=== PATIENT | female | born 1975 | race Caucasian/White ===

== ENCOUNTER → 2023-09-06 07:51 | Outpatient (REF) | payer BC, SELFPAY | LOC: EMG 07:51 | PROVIDERS: ATTENDING PHYSICIAN Orthopaedic Surgery Hand Surgery; FAMILY PHYSICIAN Internal Medicine | DX: G56.02 Carpal tunnel syndrome, left upper limb (principal); R20.0 Anesthesia of skin | CPT/HCPCS: 95886; 95909 ==

== ENCOUNTER 2023-09-11 12:40 | Emergency (ER) | payer BC, SELFPAY ==
[2023-09-11 12:43] VITALS: BP 159/102
--- NOTE | 2023-09-11 14:06 | ED.GENMED ---
History of Present Illness
General
Chief Complaint: Musculo-Skeletal Complaint
Source: patient
Exam Limitations: none
Time Seen by Provider: 09/11/23 13:40
Nursing documentation reviewed up to this point in time: agreed with
Travel History
Have you had any contact with someone who has COVID-19?: No
Do you have any symptoms of coronavirus? Fever > 100 degrees, chills, cough, shortness of breath, sore throat, loss of taste or smell, muscle aches, or headache?: No
History of Present Illness
History of Present Illness:
Patient is a 47-year-old female who presents to the ER for evaluation. Patient reports fracture started with numbness and tingling to her left hand more in the thumb and index finger region. She saw orthopedics Dr. Pelaez of orthopedics and had a
normal EMG. She then however started with pain 1 week ago. She reports pain is in her left back left trapezius region which radiates down her left arm. She reports this is constant she is unable to sleep with that. She is not short of breath
with this pain. She does however feel some slight discomfort left chest. It is not made worse with movement. She denies any weakness in her left hand but does complain of continued numbness. She has taken Aleve/Tylenol without relief.
She has no cardiac history. She is a smoker and does have high cholesterol.
Past History
Past History
ED Past Medical History: None
ED Past Surgical History: None
Social History
Tobacco: Non-smoker
Alcohol: None
Review of Systems
Review of Systems
Allergies reviewed?: Yes
All Other Systems: ROS reviewed and negative except as documented in HPI and ROS
Constitutional: Reports no symptoms; Denies fever, fatigue or chills
Respiratory: Denies trouble breathing
Cardiac: Reports chest pain
ABD/GI: Reports no symptoms
: Reports no symptoms
Musculoskeletal: Reports other (pain left back which radiates to left arm )
Skin: Reports no symptoms
Neurological: Reports numbness (numbness to left hand region along thumb/index finger region )
Psychiatric: Reports no symptoms
Phy Exam
General Physical Exam
General Presentation: no apparent distress
General age: appears stated age
General Skin: warm and dry
General Habitus: normal
General Mental: alert
General Hydration: appears well hydrated
Cardiovascular Exam
Cardiovascular Exam: regular rate/rhythm, no murmur and normal peripheral pulses
Pulmonary Exam
Pulmonary Exam: lungs clear and no respiratory distress
Neurological Exam
Neurological Exam: alert, oriented x3 and other (Patient has normal sensation to bilateral upper extremities strong strike planning applications strength bilaterally, normal flexion extension of fingers )
Musculoskeletal Exam
Musculoskeletal Exam: full ROM
Skin Exam
Skin Exam: normal color and warm/dry
Psychiatric Exam
Psychiatric Exam: normal mood/affect
Course
Orders/Labs/Results
Orders:
Orders
09/11/23 12:45
Electrocardiogram (*1) Urgent
Reason for Study: Fatigue / Weakness
EKG- Treatment ONCE
09/11/23 14:00
Complete Blood Count/With Diff Urgent
Comprehensive Metabolic Panel Urgent
Troponin I Urgent
09/11/23 14:03
Dexamethasone Sod Phosphate [Decadron] 10 mg IV NOW STA
09/11/23 14:04
Ketorolac [Toradol] 15 mg IV NOW STA
09/11/23 15:03
diazePAM [Valium Injection] 2 mg IV NOW STA
Abnormal Lab Results
09/11/23
14:00
MCHC 32.9 L g/dL
(33.0-37.0)
MPV 10.6 H fL
(7.4-10.4)
Creatinine 0.5 L mg/dL
(0.6-1.0)
Glucose 130 H mg/dl
(70-99)
09/11/23 14:00
09/11/23 14:00
Vital Signs
Initial and Last Documented VS:
Initial Vital Signs
Temp Pulse Resp BP Pulse Ox
98.3 F 88 18 159/102 98
09/11/23 12:43 09/11/23 12:43 09/11/23 12:43 09/11/23 12:43 09/11/23 12:43
Last Documented Vital Signs
Temp Pulse Resp BP Pulse Ox
98.3 F 73 18 155/89 98
09/11/23 12:43 09/11/23 14:43 09/11/23 14:43 09/11/23 14:43 09/11/23 14:43
Honey Blender consulted with Physician
Honey Blender consulted with physician?: Yes
Name of Physician Consulted: Dorian
MDM/Problems Addressed
Differential Diagnosis Includes:
not limited to: Radicular pain
MDM/Problems Addressed:
Symptoms are consistent with radicular pain. Patient on exam has no obvious weakness but does complain of pain left side of neck left trapezius left chest or left arm. She has documented started with paresthesias of her left hand thumb and index
finger since August 07 however this pain developed 1 week ago. She has been seen by orthopedics who did EMG to evaluated the numbness in her hand which she she said was negative. I was not able to find the study and records.\\
She has no cardiac history. With pain rating down left arm card troponin was done and unremarkable, EKG unremarkable. Patient was given Toradol and Decadron with some relief will give 1 dose of Valium here. Case discussed with radiology. CAT
scan did not show obvious disc herniation is on the differential. Patient does need MRI. Will DC with outpatient Ortho. Did review patient that she likely will need further imaging. case d/c w/ ED physician will d/c w/ steroids /gapapentin .
*Pulse Oximetry
Patient hypoxic: no
*Critical Care Note
Total Time (30-74mins, 75-104mins- exclusive of procedures): Not Applicable
ED Attending Note
-
Portions of this chart may have been created with voice recognition software.� Occasional wrong word or��sound alike� substitutions may have occurred due to the inherent limitations of voice recognition software.
Discharge Plan
Departure
Patient Disposition: Home (Routine Discharge)
Date of Disposition: 09/11/23
Time of Disposition: 15:35
Patient with high blood pressure during this ER visit?: Yes
Condition: Fair
Covid-19: Not Applicable
Discharge Problem:
Cervical radiculopathy
Instructions: Radiculopathy (DC), BLOOD PRESSURE
Prescriptions:
New
gabapentin 300 mg capsule
300 mg PO TID PRN (Reason: nerve pain) Qty: 20 0RF
prednisone 50 mg tablet
50 mg PO DAILY Qty: 5 0RF
No Action
amitriptyline 25 mg tablet
25 mg PO HS
calcium carbonate [Tums] 200 mg calcium (500 mg) Tablet,Chewable
200 mg PO TIDPRN PRN (Reason: GERD)
diclofenac sodium 1 % Gel
1 ea TOPICAL BIDPRN PRN (Reason: BACK OF NECK AREA)
oxycodone 5 mg tablet
5 - 10 mg PO Q4HPRN PRN (Reason: moderate to severe pain) Qty: 20 0RF
cyanocobalamin (vitamin B-12) 1,000 mcg Tablet
1,000 mcg PO DAILY Qty: 30 0RF
ibuprofen [Motrin IB] 200 mg capsule
400 mg PO Q6H PRN (Reason: moderate pain) Qty: 14 0RF
Rx Instructions:
take with food Only
omeprazole 20 mg Tablet,Delayed Release (Dr/Ec)
20 mg PO DAILY Qty: 0 0RF
thiamine HCl (vitamin B1) 100 mg tablet
100 mg PO DAILY Qty: 10 0RF
Referrals:
Jose Juan Pelaez MD [Active] -
Jesse Schwartz MD [Family Provider] -
Activity Restrictions/Additional Instructions:
discussed please follow up with orthopedics for further evaluation. It is likely that you will also need additional imaging. Please call tomorrow to make an appointment.
As discussed please take steroids and gabapentin as directed. These medications were sent to pharmacy.
Start steroids tomorrow as you were given the first dose here in the ER. Also gabapentin may cause drowsiness. Please try the first dose before bed or in the evening to see how this medication affects you
Return if any worsening of symptoms creased pain/weakness to left arm/hand /fevers or any further concerns
Interventions
Interventions:
*Risk Screen - Suicide Last Done: 09/11/23 12:43
*General Assessment Last Done: 09/11/23 12:43
*Neglect/Abuse Screening Last Done: 09/11/23 12:43
ED- Fall Risk Assessment Last Done: 09/11/23 14:03
*ED COVID-19 Vaccine History Last Done: 09/11/23 12:43
ED-Musculoskeletal Assessment Last Done: 09/11/23 14:02
[2023-09-11 14:13] LABS: % Basophils 0.7 % (0-2); % Eosinophils 1.1 % (0-6); % Immature Granulocytes 0.2 % (0-0.5); % Lymphocytes 27.7 % (20.5-51.1); % Monocytes 9.2 % (1.7-9.3); % Neutrophils 61.1 % (42.2-75.2); Absolute Eosinophils 0.1 10^3/uL (0-0.7); Absolute Lymphocytes 1.5 10^3/uL (1.2-3.4); Absolute Monocytes 0.5 10^3/uL (0.1-0.6); Absolute Neutrophils 3.3 10^3/uL (1.4-6.5); Hematocrit 42.3 % (37.0-47.0); Hemoglobin 13.9 g/dL (12.0-16.0); Mean Corp Hgb Conc. 32.9 g/dL (33.0-37.0); Mean Corpuscular Hgb 27.6 pg (27.0-31.0); Mean Corpuscular Volume 83.9 fL (81.0-99.0); Mean Platelet Volume 10.6 fL (7.4-10.4); Nucleated Red Blood Cells % 0 %; Platelet Count 318 10^3/uL (130-400); Red Blood Cell Count 5.04 10^6/uL (4.20-5.40); Red Cell Dist. Width 13.7 % (11.5-14.5); White Blood Cell Count 5.5 10^3/uL (4.8-10.8)
[2023-09-11] MEDS: DECADRON 10 MG IV (14:18)
[2023-09-11] MEDS: TORADOL 15 MG IV (14:18)
[2023-09-11 14:22] LABS: ALT (SGPT) 18 U/L (0-35); AST (SGOT) 22 U/L (14-36); Albumin 4.3 g/dl (3.5-5.0); Alkaline Phosphatase 48 U/L (38-126); Blood Urea Nitrogen 11 mg/dl (7-17); Calcium 9.6 mg/dl (8.4-10.2); Carbon Dioxide 28 mmol/L (22-30); Chloride 101 mmol/L (98-107); Glucose 130 mg/dl (70-99); Potassium 4.3 mmol/L (3.5-5.1); Sodium 138 mmol/L (135-145); Total Bilirubin 0.8 mg/dl (0.2-1.3); Total Protein 7.4 g/dl (6.3-8.2); eGFR > 60.00
[2023-09-11 14:36] LABS: Troponin I < 0.012 ng/ml
[2023-09-11 14:43] VITALS: BP 155/89
[2023-09-11] MEDS: VALIUM INJECTION 2 MG IV (15:08)
== END 2023-09-11 15:48 | disposition home or self-care (01) ==
LOC: EMR 12:40
PROVIDERS: Emergency Medicine; EMERGENCY PHYSICIAN Emergency Medicine; FAMILY PHYSICIAN Internal Medicine
DX: M54.12 Radiculopathy, cervical region (principal); R03.0 Elevated blood-pressure reading, without diagnosis of hypertension
CPT/HCPCS: 99284; 96374; 96375 ×2; 80053; 84484; 85025; 93005

== ENCOUNTER → 2023-09-21 10:58 | Outpatient (REF) | payer BC, SELFPAY | LOC: HWRAD 10:58 | PROVIDERS: ATTENDING PHYSICIAN Internal Medicine | DX: M54.2 Cervicalgia (principal); E04.1 Nontoxic single thyroid nodule | CPT/HCPCS: 76536 ==

== ENCOUNTER → 2023-10-17 07:58 | Outpatient (REF) | payer BC, SELFPAY ==
[2023-10-17 08:26] LABS: % Basophils 0.3 % (0-2); % Eosinophils 1.6 % (0-6); % Immature Granulocytes 0.4 % (0-0.5); % Lymphocytes 21.2 % (20.5-51.1); % Monocytes 7.3 % (1.7-9.3); % Neutrophils 69.2 % (42.2-75.2); Absolute Eosinophils 0.1 10^3/uL (0-0.7); Absolute Lymphocytes 1.9 10^3/uL (1.2-3.4); Absolute Monocytes 0.7 10^3/uL (0.1-0.6); Absolute Neutrophils 6.2 10^3/uL (1.4-6.5); Hematocrit 40.8 % (37.0-47.0); Hemoglobin 13.2 g/dL (12.0-16.0); Mean Corp Hgb Conc. 32.4 g/dL (33.0-37.0); Mean Corpuscular Hgb 26.9 pg (27.0-31.0); Mean Corpuscular Volume 83.1 fL (81.0-99.0); Mean Platelet Volume 10.5 fL (7.4-10.4); Nucleated Red Blood Cells % 0 %; Platelet Count 295 10^3/uL (130-400); Red Blood Cell Count 4.91 10^6/uL (4.20-5.40)
[2023-10-17 09:20] LABS: ALT (SGPT) 25 U/L (0-35); AST (SGOT) 23 U/L (14-36); Albumin 4.2 g/dl (3.5-5.0); Alkaline Phosphatase 66 U/L (38-126); Blood Urea Nitrogen 5 mg/dl (7-17); Calcium 9.3 mg/dl (8.4-10.2); Carbon Dioxide 26 mmol/L (22-30); Chloride 105 mmol/L (98-107); Glucose 99 mg/dl (70-99); HDL Cholesterol 58 mg/dl; LDL Cholesterol, Calculated 120 mg/dl; Potassium 4.1 mmol/L (3.5-5.1); Sodium 137 mmol/L (135-145); Total Bilirubin 0.6 mg/dl (0.2-1.3); Total Cholesterol 201 mg/dl (50-199); Total Protein 7.1 g/dl (6.3-8.2); Triglyceride 115 mg/dl (10-149); Very Low Density Lipoprotein 23 mg/dl (0-30); eGFR > 60.00
[2023-10-17 09:30] LABS: Free T4 0.99 ng/dl (0.78-2.19)
== END ==
LOC: REG 07:58
PROVIDERS: ATTENDING PHYSICIAN Internal Medicine
DX: E78.5 Hyperlipidemia, unspecified (principal); M54.2 Cervicalgia
CPT/HCPCS: 36415; 80053; 80061; 84439; 84443; 85025

== ENCOUNTER → 2023-11-15 09:00 | Outpatient (REF) | payer BC, SELFPAY ==
[2023-11-15 09:12] VITALS: BP 156/92; BP_SYST 89
== END ==
LOC: RADI 09:00
PROVIDERS: ATTENDING PHYSICIAN Internal Medicine
DX: E04.1 Nontoxic single thyroid nodule (principal)
CPT/HCPCS: 88173; 10005

== ENCOUNTER → 2024-02-13 16:30 | Outpatient (REF) | payer BC, SELFPAY | LOC: HWWDC 16:30 | PROVIDERS: ATTENDING PHYSICIAN Obstetrics & Gynecology Gynecology; FAMILY PHYSICIAN Internal Medicine | DX: Z12.31 Encounter for screening mammogram for malignant neoplasm of breast (principal) | CPT/HCPCS: 77063; 77067 ==

== ENCOUNTER → 2024-03-14 13:11 | Outpatient (REF) | payer BC, SELFPAY ==
[2024-03-14 14:15] LABS: % Basophils 0.6 % (0-2); % Eosinophils 0.6 % (0-6); % Immature Granulocytes 0.5 % (0-0.5); % Lymphocytes 25.5 % (20.5-51.1); % Monocytes 6.8 % (1.7-9.3); Absolute Lymphocytes 1.6 10^3/uL (1.2-3.4); Absolute Monocytes 0.4 10^3/uL (0.1-0.6); Absolute Neutrophils 4.1 10^3/uL (1.4-6.5); Hematocrit 40.9 % (37.0-47.0); Hemoglobin 13.3 g/dL (12.0-16.0); Mean Corp Hgb Conc. 32.5 g/dL (33.0-37.0); Mean Corpuscular Hgb 27.2 pg (27.0-31.0); Mean Corpuscular Volume 83.6 fL (81.0-99.0); Mean Platelet Volume 11.3 fL (7.4-10.4); Nucleated Red Blood Cells % 0 %; Platelet Count 286 10^3/uL (130-400); Red Blood Cell Count 4.89 10^6/uL (4.20-5.40); Red Cell Dist. Width 13.6 % (11.5-14.5); White Blood Cell Count 6.2 10^3/uL (4.8-10.8)
[2024-03-14 15:00] LABS: ALT (SGPT) 22 U/L (0-35); AST (SGOT) 22 U/L (14-36); Albumin 4.6 g/dl (3.5-5.0); Alkaline Phosphatase 67 U/L (38-126); Blood Urea Nitrogen 10 mg/dl (7-17); Calcium 9.6 mg/dl (8.4-10.2); Carbon Dioxide 26 mmol/L (22-30); Chloride 104 mmol/L (98-107); Glucose 101 mg/dl (70-99); Magnesium 1.9 mg/dl (1.6-2.3); Potassium 4.2 mmol/L (3.5-5.1); Sodium 138 mmol/L (135-145); Total Bilirubin 0.7 mg/dl (0.2-1.3); Total Protein 7.4 g/dl (6.3-8.2); Uric Acid 5.3 mg/dl (2.5-6.2); eGFR > 60.00
[2024-03-14 15:36] LABS: TSH Reflex To Free T4 1.31 uIU/ml (0.47-4.68)
[2024-03-15 09:45] LABS: Glycohemoglobin (HgbA1c) 5.8 % (4.0-5.6)
[2024-03-17 18:42] LABS: Lipoprotein a (Lp a) 47 mg/dL (<=29)
== END ==
LOC: REG 13:11
PROVIDERS: ATTENDING PHYSICIAN Physician Assistant Medical; FAMILY PHYSICIAN Internal Medicine
DX: E78.2 Mixed hyperlipidemia (principal); E79.82 Hereditary xanthinuria; E78.41 Elevated Lipoprotein(a); R73.03 Prediabetes
CPT/HCPCS: 36415; 80053; 80061; 83036; 83695; 83704; 83735; 84443; 84550; 85025; 86140

== ENCOUNTER 2024-05-15 14:27 | Emergency (ER) | payer BC, SELFPAY ==
[2024-05-15 14:29] VITALS: BP 156/101
--- NOTE | 2024-05-15 14:46 | ED.GENMED ---
History of Present Illness
General
Chief Complaint: Head Injury
Source: patient
Exam Limitations: none
Time Seen by Provider: 05/15/24 14:45
Nursing documentation reviewed up to this point in time: agreed with
History of Present Illness
History of Present Illness:
48-year-old female history of herniated disc presents Emergency Department today with concerns of right sided headache, and mild blurry vision for the past few days. Patient reports that this started when around a week ago, she was gardening with a
large garden pliers she was cutting a branch when the garden plier handle fell back and hit her on the right side of her head. Patient states that she felt a bump on her right anterior forehead. Patient states that she subsequently applied ice to
the area and states that the swelling has gone down. She notes persistent headache despite use of Tylenol. She also notes that she works from home and notes that she has had a difficult time focusing on her computer screen and feels like this
exacerbates her symptoms. Patient denies neck pain, patient denies syncope at this time, patient denies any other symptoms or injuries. She denies syncopal episodes.
Past History
Past History
ED Past Medical History: None
ED Past Surgical History: None
Social History
Tobacco: Non-smoker
Alcohol: None
Review of Systems
Review of Systems
All Other Systems: ROS reviewed and negative except as documented in HPI and ROS
Phy Exam
Physical Exam
Physical Exam:
General: Patient is well appearing and in no acute distress; non-toxic
Skin: Warm and dry, no rashes or lesions
Head: Small 1 cm hematoma noted to the right anterior scalp. No tenderness palpation of the facial bones.
Eyes: Sclera non-icteric. EOMs intact. No entrapment.
Neck: No tenderness to palpation of the cervical spine, no palpable bony deformities
Cardiac: Regular rate and rhythm, no murmurs
Pulm: Normal respiratory effort
Musculoskeletal: 5/5 strength in bilateral upper and lower extremities
Neuro: CN II-XII intact, no focal neurologic deficits. Normal finger to nose, heel to lora testing.
Psychiatric: Appropriate mood and affect.
Course
Orders/Labs/Results
Orders:
Orders
05/15/24 14:32
CT Head W/o Iv Contrast Urgent
Comment: one week ago
Reason For Exam: RODRIGUEZ after hitting her head with trimming clippers
05/15/24 14:55
Ibuprofen [Motrin] 600 mg PO NOW STA
Vital Signs
Initial and Last Documented VS:
Initial Vital Signs
Temp Pulse Resp BP Pulse Ox
98.2 F 80 16 156/101 98
05/15/24 14:29 05/15/24 14:29 05/15/24 14:29 05/15/24 14:29 05/15/24 14:29
Last Documented Vital Signs
Temp Pulse Resp BP Pulse Ox
98.2 F 80 16 156/101 98
05/15/24 14:29 05/15/24 14:29 05/15/24 14:29 05/15/24 14:29 05/15/24 14:29
MDM/Problems Addressed
Differential Diagnosis Includes:
Differentials include concussion, subdural hematoma, epidural hematoma, tension headache, migraine headache
MDM/Problems Addressed:
48-year-old female presents emergency department today for persistent headache and difficulty focusing while working after head injury that occurred a week ago. On physical exam she is well-appearing, she has no focal neurologic deficits, she has
no obvious signs of head trauma other than a small palpable hematoma to the right anterior scalp. She has no midline spinal tenderness in the cervical spine. She had a CT scan done today which was negative. Patient did receive ibuprofen here in
emergency department which did help improve her symptoms. Considering patient's symptoms are worse with screen time, who feels the patient symptoms are consistent with a concussion. I discussed this with patient. I discussed follow-up with
primary care provider and discuss break from activities that exacerbates her symptoms. Patient stable for discharge.
Chronic conditions affecting care:
n/a
Acute Exacerbation and/or Progression of Chronic Illness:
n/a
*Pulse Oximetry
Patient hypoxic: no
*Critical Care Note
Total Time (30-74mins, 75-104mins- exclusive of procedures): Not Applicable
Data Reviewed
Review of Other/Old Records Reveals: Records (Reviewed previous ER physician documentation from 07/11/2024, patient seen for cervical radiculopathy, she was put on dose of Valium and outpatient orthopedics) and Discharge Summary (No discharge summary
to review )
Source: patient and records
Prescriptions/Medications Considered But Not Given:
n/a
Further Testing Considered But Not Given:
n/a
ED Attending Note
-
Portions of this chart may have been created with voice recognition software.� Occasional wrong word or��sound alike� substitutions may have occurred due to the inherent limitations of voice recognition software.
Discharge Plan
Departure
Patient Disposition: Home (Routine Discharge)
Date of Disposition: 05/15/24
Time of Disposition: 15:53
Patient with high blood pressure during this ER visit?: Yes
Condition: Good
Discharge Problem:
Concussion
Instructions: Concussion, Adult (DC), Minor Head Injury (DC), BLOOD PRESSURE
Prescriptions:
No Action
amitriptyline 25 mg tablet
25 mg PO HS
Referrals:
Jesse Schwartz MD [Family Provider] -
Stand Alone Forms: Return to Work
Activity Restrictions/Additional Instructions:
Please follow up with your primary care provider in one week.
Please return to the emergency department should you experience persistent headache, nausea or vomiting, chest pain, shortness of breath, or any other signs or symptoms concerning to you.
A copy of your CT scan is in this packet.
Interventions
Interventions:
*Risk Screen - Suicide Last Done: 05/15/24 14:29
*General Assessment Last Done: 05/15/24 15:29
*Neglect/Abuse Screening Last Done: 05/15/24 14:29
ED- Fall Risk Assessment Last Done: 05/15/24 15:29
*ED COVID-19 Vaccine History Last Done: 05/15/24 15:29
*Nursing Disposition Last Done: 05/15/24 16:03
ED- Neurological Assessment Last Done: 05/15/24 15:29
ED-Skin Assessment Last Done: 05/15/24 15:29
Discharge Date and Time
Discharge Date/Time: 05/15/24 16:29
Print Language: BRUNEIAN
[2024-05-15] MEDS: MOTRIN 600 MG PO (15:26)
== END 2024-05-15 16:29 | disposition home or self-care (01) ==
LOC: EMR 14:27
PROVIDERS: EMERGENCY PHYSICIAN Emergency Medicine; FAMILY PHYSICIAN Internal Medicine
DX: S06.0XAA Concussion with loss of consciousness status unknown, initial encounter (principal); W22.8XXA Striking against or struck by other objects, initial encounter; R03.0 Elevated blood-pressure reading, without diagnosis of hypertension
CPT/HCPCS: 99284; 70450

== ENCOUNTER → 2024-10-25 13:01 | Outpatient (REF) | payer BC, SELFPAY ==
[2024-10-25 13:54] LABS: % Basophils 0.8 % (0-2); % Eosinophils 1.4 % (0-6); % Immature Granulocytes 0.2 % (0-0.5); % Lymphocytes 37.8 % (20.5-51.1); % Monocytes 7.3 % (1.7-9.3); % Neutrophils 52.5 % (42.2-75.2); Absolute Eosinophils 0.1 10^3/uL (0-0.7); Absolute Lymphocytes 1.9 10^3/uL (1.2-3.4); Absolute Monocytes 0.4 10^3/uL (0.1-0.6); Absolute Neutrophils 2.7 10^3/uL (1.4-6.5); Hematocrit 45.3 % (37.0-47.0); Hemoglobin 14.3 g/dL (12.0-16.0); Mean Corp Hgb Conc. 31.6 g/dL (33.0-37.0); Mean Corpuscular Hgb 26.7 pg (27.0-31.0); Mean Corpuscular Volume 84.7 fL (81.0-99.0); Mean Platelet Volume 11.3 fL (7.4-10.4); Nucleated Red Blood Cells % 0 %; Platelet Count 281 10^3/uL (130-400); Red Blood Cell Count 5.35 10^6/uL (4.20-5.40); Red Cell Dist. Width 13.2 % (11.5-14.5); White Blood Cell Count 5.1 10^3/uL (4.8-10.8)
[2024-10-25 14:08] LABS: Glycohemoglobin (HgbA1c) 5.2 % (4.0-5.6)
[2024-10-25 14:38] LABS: ALT (SGPT) 13 U/L (0-35); AST (SGOT) 17 U/L (14-36); Albumin 4.7 g/dl (3.5-5.0); Alkaline Phosphatase 49 U/L (38-126); Blood Urea Nitrogen 12 mg/dl (7-17); Calcium 10.1 mg/dl (8.4-10.2); Carbon Dioxide 29 mmol/L (22-30); Chloride 101 mmol/L (98-107); Glucose 86 mg/dl (70-99); HDL Cholesterol 63 mg/dl; LDL Cholesterol, Calculated 138 mg/dl; Potassium 4.6 mmol/L (3.5-5.1); Sodium 138 mmol/L (135-145); Total Bilirubin 0.6 mg/dl (0.2-1.3); Total Cholesterol 218 mg/dl (50-199); Total Protein 7.8 g/dl (6.3-8.2); Triglyceride 85 mg/dl (10-149); Very Low Density Lipoprotein 17 mg/dl (0-30); eGFR > 60.00
[2024-10-25 15:16] LABS: TSH Reflex To Free T4 1.05 uIU/ml (0.47-4.68)
== END ==
LOC: REG 13:01
PROVIDERS: ATTENDING PHYSICIAN Internal Medicine; FAMILY PHYSICIAN Internal Medicine
DX: E78.2 Mixed hyperlipidemia (principal); R73.03 Prediabetes; R53.83 Other fatigue; M79.7 Fibromyalgia
CPT/HCPCS: 36415; 80053; 80061; 83036; 84443; 85025

== ENCOUNTER → 2025-02-13 15:36 | Outpatient (REF) | payer BC, SELFPAY | LOC: HWWDC 15:36 | PROVIDERS: ATTENDING PHYSICIAN Obstetrics & Gynecology Gynecology; FAMILY PHYSICIAN Internal Medicine | DX: Z12.31 Encounter for screening mammogram for malignant neoplasm of breast (principal) | CPT/HCPCS: 77063; 77067 ==

== ENCOUNTER 2025-03-18 06:21 | Day surgery (SDC) | payer BC, SELFPAY | END 2025-03-18 10:56 | disposition home or self-care (01) | LOC: GI 06:21 | PROVIDERS: ATTENDING PHYSICIAN Surgery | DX: Z12.11 Encounter for screening for malignant neoplasm of colon (principal); K57.30 Diverticulosis of large intestine without perforation or abscess without bleeding; K64.8 Other hemorrhoids | CPT/HCPCS: G0121 ==